=== PATIENT | male | born 1965 | race Caucasian/White ===

== ENCOUNTER → 2016-08-26 | Emergency (ER) | payer BC, OTHER ==
[~2016-08-26] VITALS: Ht 182.9 cm; Wt 88.9 kg
[2016-08-26 12:00] VITALS: BP 142/86
== END | disposition left against medical advice (07) ==
LOC: M ED 13:33
DX: M79.609 Pain in unspecified limb (principal); Z53.21 Procedure and treatment not carried out due to patient leaving prior to being seen by health care provider

== ENCOUNTER → 2023-12-08 | Outpatient (CLI) | payer OTHER | LOC: M OUTALCOH 08:21 | PROVIDERS: ATTEND Psychiatry & Neurology Psychiatry | DX: Z03.89 Encounter for observation for other suspected diseases and conditions ruled out (principal) ==

== ENCOUNTER 2023-12-13 10:55 | Outpatient (RCR) | payer OTHER | END 2023-12-24 | LOC: M OUTALCOH 10:55 | PROVIDERS: ATTEND Psychiatry & Neurology Psychiatry | DX: Z03.89 Encounter for observation for other suspected diseases and conditions ruled out (principal) ==

== ENCOUNTER 2024-02-12 10:02 | Day surgery (SDC) | payer OTHER ==
[~2024-02-12] VITALS: Ht 185.4 cm; Wt 85.7 kg
[~2024-02-12 10:02] MED LIST: ATROPINE SULFATE 1% OPHTH SOLN 2ML BTL OS SCH; FLURBIPROFEN 0.03% OPHTH SOLN 2.5 ML OS SCH; LR 1,000 ML IV SCH; PHENYLEPHRINE 2.5% OPHTH SOL 2ML OS SCH; TETRACAINE 0.5% OPHTH SOLN 4ML OS SCH
[2024-02-12] MEDS ORDERED: fentaNYL 100 MCG/2 ML INJECTION As Ordered ONE (10:16)
[2024-02-12] MEDS ORDERED: MIDAZOLAM INJ 2MG/2ML VIAL As Ordered ONE (10:16)
[2024-02-12] MEDS ORDERED: dexmedeTOMIDine (4MCG/ML)200MCG/50ML BTL (PRECEDEX) As Ordered ONE (11:11)
[2024-02-12] MEDS: LIDOCAINE 1% SDV 5ML VIAL As Ordered ONE (11:55)
[2024-02-12] MEDS: CEFUROXIME 1MG/0.1ML INTRACAMERAL INJ As Ordered ONE (11:55)
[2024-02-12 12:07] VITALS: BP 157/100; TEMP 97.8; O2SAT 95
== END 2024-02-12 12:27 | disposition home or self-care (01) ==
LOC: M SDC 10:02
PROVIDERS: ATTEND Ophthalmology
DX: H25.12 Age-related nuclear cataract, left eye (principal); F17.210 Nicotine dependence, cigarettes, uncomplicated; Z91.048 Other nonmedicinal substance allergy status; Z91.030 Bee allergy status
CPT/HCPCS: 66984; J0697; J2250; J3010

== ENCOUNTER 2024-02-19 11:17 | Day surgery (SDC) | payer OTHER ==
[~2024-02-19] VITALS: Ht 182.9 cm; Wt 86.2 kg
[~2024-02-19 11:17] MED LIST changes: -ATROPINE SULFATE 1% OPHTH SOLN 2ML BTL OS SCH; -FLURBIPROFEN 0.03% OPHTH SOLN 2.5 ML OS SCH; +MIDAZOLAM INJ 2MG/2ML VIAL As Ordered ONE; -PHENYLEPHRINE 2.5% OPHTH SOL 2ML OS SCH; -TETRACAINE 0.5% OPHTH SOLN 4ML OS SCH; +fentaNYL 100 MCG/2 ML INJECTION As Ordered ONE
[2024-02-19] MEDS: FLURBIPROFEN 0.03% OPHTH SOLN 2.5 ML OD SCH (13:08)
[2024-02-19] MEDS: ATROPINE SULFATE 1% OPHTH SOLN 2ML BTL OD SCH (13:08)
[2024-02-19] MEDS: TETRACAINE 0.5% OPHTH SOLN 4ML OD SCH (13:08)
[2024-02-19] MEDS: PHENYLEPHRINE 2.5% OPHTH SOL 2ML OD SCH (13:08)
[2024-02-19] MEDS: LIDOCAINE 1% SDV 5ML VIAL As Ordered ONE (13:41)
[2024-02-19] MEDS ORDERED: MIDAZOLAM 5MG/ML 1ML VIAL As Ordered ONE (13:43)
[2024-02-19] MEDS: CEFUROXIME 1MG/0.1ML INTRACAMERAL INJ As Ordered ONE (13:43)
[2024-02-19 13:58] VITALS: BP 135/89; TEMP 97.1; O2SAT 96
== END 2024-02-19 14:16 | disposition home or self-care (01) ==
LOC: M SDC 11:17
PROVIDERS: ATTEND Ophthalmology
DX: H25.11 Age-related nuclear cataract, right eye (principal); Z91.048 Other nonmedicinal substance allergy status; Z91.030 Bee allergy status; F17.210 Nicotine dependence, cigarettes, uncomplicated
CPT/HCPCS: 66984; J0697; J2250; J3010

== ENCOUNTER 2024-03-14 16:36 | Emergency (ER) | payer OTHER ==
[~2024-03-14] VITALS: Ht 180.3 cm; Wt 86.4 kg
[2024-03-14 16:36] VITALS: BP 159/90; TEMP 97.1; O2SAT 94
[2024-03-14] MEDS ORDERED: HYDR2TAB2 PO (16:51)
[2024-03-15] MEDS ORDERED: EPIN0.3I11 INJ (23:19)
== END 2024-03-14 18:19 | disposition left against medical advice (07) ==
LOC: M ED 16:36
DX: Z53.21 Procedure and treatment not carried out due to patient leaving prior to being seen by health care provider (principal)

== ENCOUNTER 2024-03-15 15:40 | Emergency (ER) | payer OTHER ==
[~2024-03-15] VITALS: Ht 180.3 cm; Wt 86.4 kg
[~2024-03-15 15:40] MED LIST changes: +HYDR2TAB2 PO; -LR 1,000 ML IV SCH; -MIDAZOLAM INJ 2MG/2ML VIAL As Ordered ONE; -fentaNYL 100 MCG/2 ML INJECTION As Ordered ONE
[2024-03-15 17:24] LABS: BASO % 0.2 % (0.0-1.0); EOS % 0.1 % (0.0-3.0); HEMATOCRIT 49.1 % (42.0-52.0); LYMPH % 6.6 % (24.0-44.0); MEAN CORPUSCULAR HEMOGLOBIN 32.3 pg (27.0-33.0); MEAN CORPUSCULAR HGB CONC 34.6 g/dl (32.0-36.5); MEAN CORPUSCULAR VOLUME 93.2 fl (80.0-96.0); MONO # 0.5 10^3/uL (0.0-0.8); MONO % 3.6 % (2.0-8.0); NEUTROPHILS # 13.2 10^3/uL (1.5-8.5); NEUTROPHILS % 89.3 % (36.0-66.0); PLATELET COUNT, AUTOMATED 323 10^3/uL (150-450); RED BLOOD COUNT 5.27 10^6/uL (4.30-6.10); WHITE BLOOD COUNT 14.8 10^3/uL (4.0-10.0)
[2024-03-15] MEDS: MORPHINE 2 MG/ML 1ML VIAL IV ONE ×3 (17:40→21:39)
[2024-03-15] MEDS: NS 1,000 ML IV ONE ×2 (17:40→19:50)
[2024-03-15 17:50] LABS: LIPASE 51 U/L (12-53)
[2024-03-15 17:52] LABS: ALBUMIN 3.6 G/DL (3.2-5.2); ALKALINE PHOSPHATASE 57 U/L (46-116); ALT/SGPT 20 U/L (7.0-40); AST/SGOT 15 U/L (<34); BILIRUBIN,DIRECT 0.3 MG/DL (<0.4); BILIRUBIN,TOTAL 0.9 MG/DL (0.3-1.2); BLOOD UREA NITROGEN 23 MG/DL (9-23); CALCIUM LEVEL 9.5 MG/DL (8.5-10.1); CARBON DIOXIDE LEVEL 29 MMOL/L (20-31); CHLORIDE LEVEL 107 MMOL/L (98-107); CREATININE FOR GFR 1.17 MG/DL (0.70-1.30); GLOMERULAR FILTRATION RATE > 60.0 (>56); GLUCOSE, FASTING 110 MG/DL (60-100); POTASSIUM SERUM 4.3 MMOL/L (3.5-5.1); SODIUM LEVEL 137 MMOL/L (136-145); TOTAL PROTEIN 6.4 G/DL (5.7-8.2)
[2024-03-15] MEDS: PIPERACILLIN/TAZOBACTAM SOD 3.375 GM in D5W MINI-BAG PLUS 50 ML IV ONE (18:30)
[2024-03-15] MEDS: KETOROLAC 30 MG/ML 1ML VIAL IV ONE (19:51)
[2024-03-15] MEDS: ONDANSETRON 4MG 2ML VIAL IV ONE ×2 (19:59→21:39)
[2024-03-15] MEDS: NS 1,000 ML IV SCH (21:58)
[2024-03-15] MEDS ORDERED: EPIN0.3I11 INJ (23:19)
[2024-03-15] MEDS ORDERED: HOME MED LIST COMPLETE! XX SCH (23:20)
[2024-03-16] MEDS ORDERED: IBUP-1022 PO (01:28)
[2024-03-16] MEDS ORDERED: ONDA-282 PO (01:29)
[2024-03-16] MEDS ORDERED: AUGM12TA11 PO (01:31)
[2024-03-16 01:45] VITALS: BP 141/66; TEMP 98; O2SAT 95
== END 2024-03-16 02:21 | disposition home or self-care (01) ==
LOC: M ED 15:40
DX: N20.1 Calculus of ureter (principal); L08.9 Local infection of the skin and subcutaneous tissue, unspecified; F17.210 Nicotine dependence, cigarettes, uncomplicated; F12.10 Cannabis abuse, uncomplicated; F10.10 Alcohol abuse, uncomplicated; Z91.030 Bee allergy status; Z91.048 Other nonmedicinal substance allergy status; Z79.2 Long term (current) use of antibiotics; Z79.1 Long term (current) use of non-steroidal anti-inflammatories (NSAID); Z79.899 Other long term (current) drug therapy
CPT/HCPCS: 73600; 73630; 73700; 74176; 80048; 80076; 81001; 83605; 83690; 85025; 87040; 96361; 96365; 96374; 96375; 96376; 99284; J1885; J2405; J2543